=== PATIENT | male | born 1955 | race Caucasian/White ===

== ENCOUNTER 2020-01-15 09:10 | Outpatient (CLI) | payer MEDICARE ==
--- NOTE | 2020-01-15 15:17 | RAD ---
XR Chest Pa Lat STANDARD HISTORY: Chest pain, unspecified COMPARISON: None FINDINGS: The heart size is normal. The lungs are well expanded without focal areas of consolidation, pneumothorax or pleural effusions. The aorta is tortuous. There are degenerative changes in the spine.. IMPRESSION: No radiographic evidence of acute cardiopulmonary process.
== END 2020-01-15 09:11 | disposition home or self-care (01) ==
LOC: BICRAD 09:10
PROVIDERS: ATTEND Family Medicine
DX: R07.9 Chest pain, unspecified (principal)
CPT/HCPCS: 71046